=== PATIENT | male | born 1965 | race Caucasian/White ===

== ENCOUNTER 2017-05-23 18:51 | Emergency (ER) | payer BC, SELFPAY ==
[2017-05-23 19:45] VITALS: BP 137/91; PULSE 124; RESP 20; TEMP 37; O2SAT 96; BMI 30.7
[2017-05-23 19:56] LABS: UTC Influenza A Antigen Negative (Negative); UTC Influenza B Antigen Negative (Negative)
--- NOTE | 2017-05-23 21:02 | HMH.EDUTC ---
[facility] [place] Disposition Clinical Impression: Vomiting Qualifiers: Vomiting type: unspecified Vomiting Intractability: non-intractable Nausea presence: with nausea Qualified Code(s): R11.2 - Nausea with vomiting, unspecified Fever Qualifiers: Fever type: unspecified Qualified Code(s): R50.9 - Fever, unspecified Abdominal pain Qualifiers: Abdominal location: right upper quadrant Qualified Code(s): R10.11 - Right upper quadrant pain Disposition: Left Against Medical Advice Condition on Discharge: Fair (vomiting had improved) Additional Instructions: Return to ER tonight for new or worsening symptoms but otherwise, since you are leaving, you need to call primary care in morning, report symptoms, report seen here and refused transfer to ER or further workup and request follow up appointment. states positive understanding and pt just reports he hears me. Referrals: Asha Hernandez APRN [Primary Care Provider] - ([facility]) Time of Disposition: 21:02 Medical Decision Making Vital Signs: 05/23/17 19:45 Temperature 98.6 F Temperature Source Temporal Artery Scan Pulse Rate [Brachial] 124 H Respiratory Rate 20 Blood Pressure [Right Arm] 137/91 Blood Pressure Mean [Right Arm] 106 Blood Pressure Source [Right Arm] Automatic Cuff Blood Pressure Position [Right Arm] Sitting 02 Sat by Pulse Oximetry 96 Oxygen Delivery Method Room Air - Lab Data Lab results reviewed: Yes: I reviewed the patient's lab results. Lab Results 05/23/17 19:46: Influenza Type A Ag Negative, Influenza Type B Ag Negative Orders (Tests/Meds): ED MEDICATIONS Discontinued Medications Generic Name Dose Route Start Last Admin Trade Name Sy PRN Reason Stop Dose Admin Promethazine HCl 25 mg 05/23/17 20:49 05/23/17 20:53 Phenergan 25mg/Ml 1ml Vial IM 05/23/17 20:50 25 mg ONCE ONE Administration Sodium Chloride 25 ml 05/23/17 20:49 Sod Chloride 0.9% 25ml Bag IV 05/23/17 20:50 ONCE ONE - Tahir Inquiry Pt receiving controlled substance: No - Reevaluation(s) Time: 20:50 Reevaluation #1: 10 minute conversation with pt and regarding concerning symptoms, possible differentials and necessary workup to rule out life threatening complications. Pt refusing all of this. Report improved with phenergan, somewhat per , and ready to go home. tries to talk patient out of leaving but he is ready to go. Discussed risk related to each possible differential and says I hear ya and still leaves. He does agree to return for new or worsening symptoms and shakes head yes when encouraged to call primary care in the morning. [facility] HPI - General Stated complaint: vomiting Time Seen by Provider: 05/23/17 20:40 Mode of Arrival: Ambulatory Source of Information: Patient Limitations: No Limitations Description of Symptoms (Recalled from Triage Doc. by RN): PT STATES HE HAS BODY ACHES AND VOMITING THAT STARTED THIS MORNING. TOOK TYLENOL AND PHENERGAN BEFORE COMING TO THE [facility]. HEENT Symptoms (Recalled from RN notes): Yes Resp Symptoms (Recalled from RN notes): Yes Skin Symptoms (Recalled from RN notes): No MS Symptoms (Recalled from RN notes): No Functional Status (Recalled from RN notes): NA - History of Present Illness Provider Complaint: c/o vomiting starting this morning. Woke up fine, went to work, started around 0830. Reports he has vomited approx 15-20 times today despite ibuprofen and zofran. Fever 100-101 throughout the day. Has felt like he might have diarrhea but hasn't. Generalized abdominal pain like knots intermittently. Worse when needing to vomit. Sharp epigastric pain at times. Intermittent x month but worse now. Dx hiatel hernia and reports PCP, Dr. Stinson, considering scheduling EGD. Two grandchildren w/ flu. - Related Data Home Medications Medication Instructions Recorded Confirmed Omeprazole [Omeprazole 20mg 20 mg PO DAILY 05/23/17 05/23/17 Capsule] Allergies Aller
--- NOTE | 2017-05-23 21:05 | ED_ITS ---
[facility] [place] Disposition Clinical Impression: Vomiting Qualifiers: Vomiting type: unspecified Vomiting Intractability: non-intractable Nausea presence: with nausea Qualified Code(s): R11.2 - Nausea with vomiting, unspecified Fever Qualifiers: Fever type: unspecified Qualified Code(s): R50.9 - Fever, unspecified Abdominal pain Qualifiers: Abdominal location: right upper quadrant Qualified Code(s): R10.11 - Right upper quadrant pain Disposition: Left Against Medical Advice Condition on Discharge: Fair (vomiting had improved) Additional Instructions: Return to ER tonight for new or worsening symptoms but otherwise, since you are leaving, you need to call primary care in morning, report symptoms, report seen here and refused transfer to ER or further workup and request follow up appointment. states positive understanding and pt just reports he hears me. Referrals: Asha Hernandez APRN [Primary Care Provider] - ([facility]) Time of Disposition: 21:02 Medical Decision Making Vital Signs: 05/23/17 19:45 Temperature 98.6 F Temperature Source Temporal Artery Scan Pulse Rate [Brachial] 124 H Respiratory Rate 20 Blood Pressure [Right Arm] 137/91 Blood Pressure Mean [Right Arm] 106 Blood Pressure Source [Right Arm] Automatic Cuff Blood Pressure Position [Right Arm] Sitting 02 Sat by Pulse Oximetry 96 Oxygen Delivery Method Room Air - Lab Data Lab results reviewed: Yes: I reviewed the patient's lab results. Lab Results 05/23/17 19:46: Influenza Type A Ag Negative, Influenza Type B Ag Negative Orders (Tests/Meds): ED MEDICATIONS Discontinued Medications Generic Name Dose Route Start Last Admin Trade Name Sy PRN Reason Stop Dose Admin Promethazine HCl 25 mg 05/23/17 20:49 05/23/17 20:53 Phenergan 25mg/Ml 1ml Vial IM 05/23/17 20:50 25 mg ONCE ONE Administration Sodium Chloride 25 ml 05/23/17 20:49 Sod Chloride 0.9% 25ml Bag IV 05/23/17 20:50 ONCE ONE - Tahir Inquiry Pt receiving controlled substance: No - Reevaluation(s) Time: 20:50 Reevaluation #1: 10 minute conversation with pt and regarding concerning symptoms, possible differentials and necessary workup to rule out life threatening complications. Pt refusing all of this. Report improved with phenergan, somewhat per , and ready to go home. tries to talk patient out of leaving but he is ready to go. Discussed risk related to each possible differential and says I hear ya and still leaves. He does agree to return for new or worsening symptoms and shakes head yes when encouraged to call primary care in the morning. [facility] [place] [place] HPI - General Stated complaint: vomiting Time Seen by Provider: 05/23/17 20:40 Mode of Arrival: Ambulatory Source of Information: Patient Limitations: No Limitations Description of Symptoms (Recalled from Triage Doc. by RN): PT STATES HE HAS BODY ACHES AND VOMITING THAT STARTED THIS MORNING. TOOK TYLENOL AND PHENERGAN BEFORE COMING TO THE [facility]. HEENT Symptoms (Recalled from RN notes): Yes Resp Symptoms (Recalled from RN notes): Yes Skin Symptoms (Recalled from RN notes): No MS Symptoms (Recalled from RN notes): No Functional Status (Recalled from RN notes): NA - History of Present Illness Provider Complaint: c/o vomiting starting this morning. Woke up fine, went to work, started around 0830.
== END 2017-05-23 21:03 | disposition left against medical advice (07) ==
PROVIDERS: Emergency Provider Nurse Practitioner Family; Family Provider Nurse Practitioner; PCP Nurse Practitioner Family
DX: R11.2 Nausea with vomiting, unspecified (principal); R50.9 Fever, unspecified; R10.11 Right upper quadrant pain; Z79.899 Other long term (current) drug therapy; K21.9 Gastro-esophageal reflux disease without esophagitis; F17.210 Nicotine dependence, cigarettes, uncomplicated
CPT/HCPCS: 87804; 96372; 99202

== ENCOUNTER → 2017-06-01 07:57 | Outpatient (CLI) | payer BC, SELFPAY ==
--- NOTE | 2017-06-01 08:03 | US_ITS ---
HISTORY: Right upper quadrant pain with vomiting ITS.REASON: RUQ PAIN ORDERING PHYSICIAN: Hernando Stinson MD PATIENT AGE: 51 years COMPARISON: None FINDINGS: PANCREAS: Unremarkable LIVER: No focal liver lesions demonstrated. Homogeneous echogenicity. No intrahepatic biliary ductal dilatation evident RIGHT KIDNEY: Unremarkable. Normal size and echogenicity. No hydronephrosis GALLBLADDER: No gallstones, gallbladder wall thickening, pericholecystic fluid, or biliary dilatation. IMPRESSION: Negative gallbladder/right upper quadrant ultrasound
== END ==
PROVIDERS: Family Provider Nurse Practitioner; PCP Internal Medicine Adolescent Medicine; Visit Provider Internal Medicine Adolescent Medicine
DX: R10.11 Right upper quadrant pain (principal)
CPT/HCPCS: 76705

== ENCOUNTER → 2017-06-14 10:18 | Outpatient (CLI) | payer BC, SELFPAY ==
--- NOTE | 2017-06-14 10:21 | NM_ITS ---
NM hepatobiliary wo pharm HISTORY: ITS.REASON: RUQ PAIN ORDERING PHYSICIAN: Hernando Stinson MD PATIENT AGE: 51 years COMPARISON: None DOSE: 8.57 mCi Tc Choletec. Fatty meal with ensure. No pain reported with fatty meal. FINDINGS: Homogeneous activity is present within the hepatic parenchyma. Activity is present in the gallbladder by 15 minutes. Activity is present in the small bowel by during the fatty meal ingestion. The gallbladder ejection fraction is calculated to be 12% The patient did not report pain or other symptoms the fatty meal . IMPRESSION: 1. No evidence of common or cystic duct obstruction. 2. Low gallbladder ejection fraction of 12%
== END ==
PROVIDERS: Family Provider Nurse Practitioner; PCP Internal Medicine Adolescent Medicine; Visit Provider Internal Medicine Adolescent Medicine
DX: R10.11 Right upper quadrant pain (principal)
CPT/HCPCS: 78226; A9537

== ENCOUNTER 2017-07-08 09:25 | Day surgery (SDC) | payer BC, SELFPAY ==
[2017-07-05 10:33] VITALS: BMI 29.5
[2017-07-08] VITALS (7 sets, daily range): BP systolic 107–144; BP diastolic 54–95; PULSE 67–81; RESP 18–20; TEMP 36.6; O2SAT 92–98
--- NOTE | 2017-07-08 10:25 | HMH.PROC ---
[facility] Procedure Note Procedure Note:: Upper Endoscopy Procedure Report: Esophagogastroduodenoscopy with cold biopsies Endoscopost: Aashish Rosado II, MD Referring Physician: Hernando Stinson M.D. Date of Procedure: July 08, 2017 Equipment: Olympus GIF 180 standard upper endoscope Sedation: MAC sedation Indications: Mr. Lui is a 51-year-old gentleman with epigastric abdominal pain, heartburn and reflux over the last 6 months. He reports bloating, early satiety, indigestion and belching. He has had some minor dysphagia. This is his first endoscopy. Procedure: Prior to the procedure, a history and physical exam was performed, and patient's medications and allergies were reviewed. The risks, benefits and alternatives of the sedation and procedure were discussed with the patient. All questions were answered and informed consent was obtained. The patient was brought to the procedure room. Patient identification and proposed procedure were verified by the physician and the nurse. The patient was placed in a left lateral decubitus position and the scope was passed under direct vision. Throughout the procedure, the patient's blood pressure, pulse, and oxygen saturations were monitored continuously. The upper GI endoscopy was accomplished without difficulty. The patient tolerated the procedure well. Findings: The scope was passed directly into the upper esophagus and advanced to the third portion of the duodenum. The post bulbar duodenum and duodenal bulb were normal with normal mucosa and conniventes. The scope was withdrawn through a normal duodenal bulb and pylorus into the stomach. There was evidence of bile reflux with mild linear reactive gastritis of the antrum and body. The remainder of the antrum, body and fundus of the stomach were grossly normal. Upon retroflexion there was a moderate sized hiatal hernia. 2 biopsies were taken in the antrum and along the lesser curvature for histology to rule out gastritis and/or H pylori. The diaphragmatic hiatus was at 38 cm. The top of the gastric folds was at 33 cm (5 cm hiatal hernia). The squamocolumnar junction was at 24-25 centimeter from the incisors. Narrowband imaging was utilized to evaluate this long segment Nathan's esophagus and there was an area distally at or near 33 cm that was biopsied directly 5-6 times to rule out dysplasia. There were circumferential biopsies taken at 30 and 27 cm. NBI did not show any further areas of possible dysplasia. There was no evidence of reflux esophagitis or stricturing. The scope was then withdrawn into the esophagus. The remainder of the esophageal mucosa was normal. Impression: 1. Long segment Nathan's esophagus (Bethany classification [id number])directed biopsies taken with use of NBI (narrowband imaging) 2. 5 cm hiatal hernia 3. Linear reactive gastritis/antritis with bile reflux Plan: I will follow up the biopsies. If there is any evidence of dysplasia, we will discuss treatment options. I would recommend surveillance endoscopy again in 2 years. I will recommend long-term omeprazole/PPI therapy for complicated GERD. 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 We will discuss additional treatment options. I will proceed with screening colonoscopy.
--- NOTE | 2017-07-08 10:55 | HMH.PROC ---
[facility] Procedure Note Procedure Note:: Colonoscopy Procedure Report: Colonoscopy with cold snare polypectomy, snare cautery and Endo Clip placement Endoscopist: Aashish Rosado II, MD Referring physician: Hernando Stinson M.D. Date of Procedure: July 08, 2017 Equipment: Olympus 180 variable stiffness pediatric colonoscope Sedation: MAC sedation Indication: Mr. Lui is a 51-year-old gentleman with reflux and dyspepsia. His EGD showed evidence of moderate sized hiatal hernia and Nathan's esophagus. He also had reactive gastritis. He is also here for initial screening colonoscopy. He reports some looser bowel movements but no change in bowel function. He reports no rectal bleeding, weight loss or family history of colon cancer. Procedure: Prior to the procedure, a history and physical exam was performed, and patient's medications and allergies were reviewed. The risks, benefits and alternatives of the sedation and procedure were discussed with the patient. All questions were answered and informed consent was obtained. The patient was brought to the procedure room. Patient identification and proposed procedure were verified by the physician and the nurse. The patient was placed in a left lateral decubitus position and the scope was passed under direct vision. Throughout the procedure, the patient's blood pressure, pulse, and oxygen saturations were monitored continuously. The colonoscopy was accomplished without difficulty. The patient tolerated the procedure well. Findings: On digital rectal examination there was normal rectal tone. There were no external hemorrhoids. The prostate was 2+, smooth, soft, symmetric without nodules. The colonoscope was introduced through the anal canal to the rectum and advanced to the cecum. The ileocecal valve and appendiceal orifice were identified. The scope was advanced a short distance into the ileum which appeared grossly normal. The scope was then withdrawn into the colon. There were 7 colon polyps identified in the ascending ?5 and descending ?2. These ranged in size from 5-10 mm and were all removed via cold snare polypectomy. There was 8th polyp in the sigmoid colon that was pedunculated and larger and was approximately 15 mm and removed via snare cautery. An Endo Clip was placed at the polypectomy site to prevent bleeding and provide hemostasis. There were scattered diverticuli throughout the descending and sigmoid colon (LEFT colon). The rectum itself was normal. Upon retroflexion within the rectum there were grade 1-2 internal hemorrhoids. Impression: 1. Larger pedunculated 15 mm sigmoid polyp 2. 7 additional colonic polyps (adenomatous polyps ?7) 3. Left-sided diverticulosis 4. Grade 1-2 internal hemorrhoids Plan: I will follow-up the polyp histology and recommend repeat screening/surveillance colonoscopy again in 1-3 years based upon the pathology findings. I would encourage fiber bulk supplementation on a long-term daily maintenance basis.
--- NOTE | 2017-07-08 10:59 | P.PCN_ITS ---
[facility] Procedure Note Procedure Note:: Colonoscopy Procedure Report: Colonoscopy with cold snare polypectomy, snare cautery and Endo Clip placement Endoscopist: Aashish Rosado II, MD Referring physician: Hernando Stinson M.D. Date of Procedure: July 08, 2017 Equipment: Olympus 180 variable stiffness pediatric colonoscope Sedation: MAC sedation Indication: Mr. Lui is a 51-year-old gentleman with reflux and dyspepsia. His EGD showed evidence of moderate sized hiatal hernia and Nathan's esophagus. He also had reactive gastritis. He is also here for initial screening colonoscopy. He reports some looser bowel movements but no change in bowel function. He reports no rectal bleeding, weight loss or family history of colon cancer. Procedure: Prior to the procedure, a history and physical exam was performed, and patient' s medications and allergies were reviewed. The risks, benefits and alternatives of the sedation and procedure were discussed with the patient. All questions were answered and informed consent was obtained. The patient was brought to the procedure room. Patient identification and proposed procedure were verified by the physician and the nurse. The patient was placed in a left lateral decubitus position and the scope was passed under direct vision. Throughout the procedure, the patient's blood pressure, pulse, and oxygen saturations were monitored continuously. The colonoscopy was accomplished without difficulty. The patient tolerated the procedure well. Findings: On digital rectal examination there was normal rectal tone. There were no external hemorrhoids. The prostate was 2+, smooth, soft, symmetric without nodules. The colonoscope was introduced through the anal canal to the rectum and advanced to the cecum. The ileocecal valve and appendiceal orifice were identified. The scope was advanced a short distance into the ileum which appeared grossly normal. The scope was then withdrawn into the colon. There were 7 colon polyps identified in the ascending ?5 and descending ?2. These ranged in size from 5-10 mm and were all removed via cold snare polypectomy. There was 8th polyp in the sigmoid colon that was pedunculated and larger and was approximately 15 mm and removed via snare cautery. An Endo Clip was placed at the polypectomy site to prevent bleeding and provide hemostasis. There were scattered diverticuli throughout the descending and sigmoid colon (LEFT colon). The rectum itself was normal. Upon retroflexion within the rectum there were grade 1-2 internal hemorrhoids. Impression: 1. Larger pedunculated 15 mm sigmoid polyp 2. 7 additional colonic polyps (adenomatous polyps ?7) 3. Left-sided diverticulosis 4. Grade 1-2 internal hemorrhoids Plan: I will follow-up the polyp histology and recommend repeat screening/ surveillance colonoscopy again in 1-3 years based upon the pathology findings. I would encourage fiber bulk supplementation on a long-term daily maintenance basis.
--- NOTE | 2017-07-08 14:42 | P.PN_ITS ---
[facility] Anesthesia Checklist - Patient Identification Patient Identification: Arm Band - Structural Data Admitted From: Home Planned Operative Procedure/s: egd/colonoscopy Consent for Planned Operative Procedure(s) Verified: Yes Verified Documents: Surgical Consent, History and Physical - NPO Status Verified Time NPO: 00:00 - Additional verifications Anesthesia Reactions: No - Airway Assessment C-Spine Mobility Assessed: Yes (mp2) TMJ Mobility Assessed: Yes Dentition: Good Dentition - Neurological Assessment Level of Consciousness: Awake, Alert - Anesthesia Plan Anesthesia Risk discussed: Yes Anesthesia Plan: Verified ASA Class: II Anesthesia Type: MAC [facility] Anesthesia HX I have reviewed the patient's past medical history: Yes Medical History: Reports:: Gastroesophageal Reflux Disease(GERD), Hyperlipidemia Denies:: Diabetes Mellitus Type 1, Diabetes Mellitus Type 2, Hypertension, Internal Pacemaker, Lung Disease, Seizures Laterality Cases: Bilateral: Tonsillectomy Other Surgeries: No: Pacemaker *Family Hx:: Cancer, Hypertension, Coronary Artery Disease, Diabetes
== END 2017-07-08 12:00 | disposition home or self-care (01) ==
LOC: OUTP 09:27
PROVIDERS: Family Provider Nurse Practitioner; PCP Internal Medicine Adolescent Medicine; Visit Provider Internal Medicine Gastroenterology
PROC: 0DJ08ZZ Inspection of Upper Intestinal Tract, Via Natural or Artificial Opening Endoscopic (ICD-10-PCS; CPT 43235; principal; 2017-07-08 10:30)
DX: Z12.11 Encounter for screening for malignant neoplasm of colon (principal); K31.9 Disease of stomach and duodenum, unspecified; K22.8 Other specified diseases of esophagus; D12.2 Benign neoplasm of ascending colon; D12.4 Benign neoplasm of descending colon; D12.5 Benign neoplasm of sigmoid colon; K57.30 Diverticulosis of large intestine without perforation or abscess without bleeding; K64.0 First degree hemorrhoids; K64.1 Second degree hemorrhoids; K22.710 Barrett's esophagus with low grade dysplasia; K44.9 Diaphragmatic hernia without obstruction or gangrene
CPT/HCPCS: 45380; 43239

== ENCOUNTER → 2018-11-30 10:32 | Outpatient (CLI) | payer BC, SELFPAY ==
[2018-11-30 12:21] LABS: Prostate Specific Ag Screen 0.5 ng/mL (0.0-4.0)
[2018-12-03 18:36] LABS: Testosterone, Total, LC/MS 357.5 ng/dL (264.0-916.0); Testosterone,Free 7.2 pg/mL (7.2-24.0)
== END ==
PROVIDERS: Visit Provider Urology
DX: R68.82 Decreased libido (principal); Z12.5 Encounter for screening for malignant neoplasm of prostate
CPT/HCPCS: 36415; 84402; 84403; G0103

== ENCOUNTER → 2019-04-10 09:30 | Outpatient (CLI) | payer BC, SELFPAY ==
[2019-04-10 09:53] LABS: Basophils % 0.5 % (0.1-2.0); Eosinophils # 0.2 K/mm3 (0.0-0.4); Eosinophils % 2.5 % (0.1-12.0); Hematocrit 49.3 % (42.0-52.0); Hemoglobin 15.7 g/dL (14.1-18.0); Lymphocytes # 2.8 K/mm3 (0.7-4.5); Lymphocytes % 39.5 % (10-50); Mean Corpuscular HGB Conc 31.9 g/dL (31.8-35.4); Mean Corpuscular Hemoglobin 29.3 pg (27.0-31.2); Mean Corpuscular Volume 91.9 fl (80-94); Mean Platelet Volume 7.7 fl (7.4-10.4); Monocytes # 0.6 K/mm3 (0.1-1.0); Monocytes % 8.4 % (1.7-9.3); Neutrophils # 3.5 K/mm3 (1.8-7.8); Neutrophils % 49.2 % (37.0-80.0); Platelet Count 259 K/mm3 (142-424); Red Blood Count 5.37 M/mm3 (4.60-6.20); White Blood Count 7.1 K/mm3 (4.8-10.8)
[2019-04-10 10:28] LABS: Hemoglobin A1C 6.1 % (0.0-7.0)
[2019-04-10 11:01] LABS: Alanine Aminotransferase 27 U/L (12-78); Albumin Level 3.8 gm/dL (3.4-5.0); Albumin/Globulin Ratio 1.2 (1.1-1.8); Alkaline Phosphatase 84 U/L (46-116); Anion Gap 15.3 mEq/L (5-15); Aspartate Amino Transferase 9 U/L (15-37); Bilirubin,Total 0.4 mg/dL (0.2-1.0); Blood Urea Nitrogen 10 mg/dL (7-18); Calcium 9.2 mg/dL (8.5-10.1); Carbon Dioxide 26 mmol/L (21.0-32.0); Chloride 104 mmol/L (98-107); Chol/HDL Ratio 6.9 (1-3.5); Cholesterol 193 mg/dL (140-200); Creatinine,Serum 0.79 mg/dL (0.70-1.30); Estimated Glomerular Filt Rate 102 ml/min (>60); GFR (African American) 124 ML/MIN (>60); Globulin 3.2 gm/dl (1.3-3.2); Glucose 97 mg/dL (74-106); HDL Cholesterol 28 mg/dL (27-67); LDL Cholesterol 126 mg/dL (0-130); Potassium 4.3 mmoL/L (3.5-5.1); Sodium 141 mmol/L (136-145); Thyroid Stimulating Hormone 1.87 uIU/ml (0.358-3.740); Triglycerides 194 mg/dL (30-200); VLDL Cholesterol 39 mg/dL (0-40)
[2019-04-11 15:31] LABS: Vitamin B12 420 pg/mL (232-1245); Vitamin D 25 Hydroxy 13.2 ng/mL (30.0-100.0)
== END ==
PROVIDERS: Visit Provider Nurse Practitioner Family
DX: Z00.00 Encounter for general adult medical examination without abnormal findings (principal); R20.2 Paresthesia of skin; E55.9 Vitamin D deficiency, unspecified
CPT/HCPCS: 36415; 80053; 80061; 82607; 82652; 83036; 84443; 85025

== ENCOUNTER → 2019-09-08 08:21 | Outpatient (CLI) | payer BC, SELFPAY ==
[2019-09-08 09:17] LABS: Basophils # 0.2 K/mm3 (0-0.2); Basophils % 2.1 % (0.1-2.0); Eosinophils # 0.2 K/mm3 (0.0-0.4); Eosinophils % 2.7 % (0.1-12.0); Hematocrit 49.9 % (42.0-52.0); Hemoglobin 16.5 g/dL (14.1-18.0); Lymphocytes # 2.9 K/mm3 (0.7-4.5); Lymphocytes % 34.6 % (10-50); Mean Corpuscular Hemoglobin 29.5 pg (27.0-31.2); Mean Corpuscular Volume 89.3 fl (80-94); Mean Platelet Volume 8.3 fl (7.4-10.4); Monocytes # 0.7 K/mm3 (0.1-1.0); Monocytes % 8.6 % (1.7-9.3); Neutrophils # 4.4 K/mm3 (1.8-7.8); Platelet Count 252 K/mm3 (142-424); Red Blood Count 5.58 M/mm3 (4.60-6.20); Red Cell Distribution Width 13.5 % (11.5-17.5); White Blood Count 8.4 K/mm3 (4.8-10.8)
[2019-09-08 10:05] LABS: Chloride 100 mmol/L (98-107); Potassium 5.5 mmoL/L (3.5-5.1); Sodium 142 mmol/L (136-145)
[2019-09-08 10:08] LABS: Alanine Aminotransferase 34 U/L (12-78); Albumin Level 4.9 g/dl (3.5-5.0); Albumin/Globulin Ratio 1.9 (1.1-1.8); Alkaline Phosphatase 75 U/L (38-126); Anion Gap 16.5 mEq/L (5-15); Aspartate Amino Transferase 27 U/L (17-59); Bilirubin,Total 0.5 mg/dl (0.2-1.3); Blood Urea Nitrogen 9 mg/dl (9-20); Calcium 10.5 mg/dl (8.4-10.2); Carbon Dioxide 31 mmol/L (22.0-30.0); Cholesterol 194 mg/dl (140-200); Estimated Glomerular Filt Rate 101 ml/min (>60); GFR (African American) 122 ML/MIN (>60); Globulin 2.6 g/dL (1.3-3.2); Glucose 112 mg/dl (74-100); Total Protein,Serum 7.5 g/dl (6.3-8.2); Triglycerides 156 mg/dl (30-150); VLDL Cholesterol 31 mg/dL (0-40)
[2019-09-08 10:09] LABS: Chol/HDL Ratio 7.5 (1-3.5); HDL Cholesterol 26 mg/dl (40-60)
[2019-09-08 10:10] LABS: Hemoglobin A1C 5.6 % (4.0-6.0)
[2019-09-08 10:20] LABS: Direct LDL Cholesterol 159.35 mg/dL (100-129)
[2019-09-09 09:32] LABS: Vitamin D 25 Hydroxy 26.2 ng/mL (30.0-100.0)
== END ==
PROVIDERS: Visit Provider Nurse Practitioner Family
DX: R03.0 Elevated blood-pressure reading, without diagnosis of hypertension (principal); H53.9 Unspecified visual disturbance; E55.9 Vitamin D deficiency, unspecified
CPT/HCPCS: 36415; 80053; 80061; 82652; 83036; 85025

== ENCOUNTER → 2020-01-11 09:41 | Outpatient (CLI) | payer BC, SELFPAY ==
[2020-01-11 11:57] LABS: Anion Gap 12.9 mEq/L (5-15); Blood Urea Nitrogen 9 mg/dl (9-20); Calcium 10.2 mg/dl (8.4-10.2); Carbon Dioxide 31 mmol/L (22.0-30.0); Chloride 101 mmol/L (98-107); Estimated Glomerular Filt Rate 88 ml/min (>60); GFR (African American) 106 ML/MIN (>60); Glucose 80 mg/dl (74-100); Potassium 4.9 mmoL/L (3.5-5.1); Sodium 140 mmol/L (136-145)
[2020-01-11 12:07] LABS: Intact Parathyroid Hormone 32.5 pg/mL (7.5-53.5)
[2020-01-11 12:10] LABS: Free T4 (Free Thyroxine) 1.12 ng/dl (0.78-2.19)
[2020-01-11 12:24] LABS: Prostate Specific Ag Screen 0.4 ng/ml (0.0-4.0)
[2020-01-11 12:25] LABS: Thyroid Stimulating Hormone 1.42 uIU/mL (0.465-4.68)
[2020-01-12 18:44] LABS: Calcium, Ionized 5.6 mg/dL (4.5-5.6)
== END ==
PROVIDERS: PCP Nurse Practitioner Family; Visit Provider Urology
DX: E83.52 Hypercalcemia (principal); E87.5 Hyperkalemia; Z12.5 Encounter for screening for malignant neoplasm of prostate
CPT/HCPCS: 36415; 80048; 82330; 83970; 84439; 84443; G0103

== ENCOUNTER 2021-12-17 14:58 | Emergency (ER) | payer BC, SELFPAY ==
[2021-12-17 15:24] VITALS: BP 137/102; PULSE 86; RESP 16; TEMP 36.8; O2SAT 95; BMI 39.9
--- NOTE | 2021-12-17 15:34 | HMH.EDUTC ---
[facility] [place] Disposition Clinical Impression: Pharyngitis Qualifiers: Pharyngitis/tonsillitis etiology: unspecified etiology Qualified Code(s): J02.9 - Acute pharyngitis, unspecified Disposition: Home, Self-Care Condition on Discharge: Good Instructions: DI for Pharyngitis/Tonsillopharyngitis -- Adult Additional Instructions: Drink plenty of fluids. Take tylenol or ibuprofen for pain or fever. Take the medications as directed. Follow up with your regular doctor. GO TO THE ER FOR ANY WORSENING SYMPTOMS Prescriptions: Amoxicillin/Potassium Clav [Amox-Clav 875-125 mg Tablet] 1 tab PO BID #20 tab Transmission Status: Received by [id number] Benzonatate [Benzonatate 100mg cap] 100 mg PO TIDP PRN #30 cap PRN Reason: Cough Transmission Status: Received by [id number] methylPREDNISolone [Medrol] 4 mg PO DIRECTED 6 Days #21 packet Transmission Status: Received by [id number] Referrals: Hernando Stinson MD [Primary Care Provider] - Time of Disposition: 15:54 Medical Decision Making - Medical Records Medical records reviewed: No: I reviewed the patient's medical records. - Tahir Inquiry Pt receiving controlled substance: No Vital Signs: 12/17/21 15:24 Temperature 98.2 F Temperature Source Oral Pulse Rate [Left] 86 Respiratory Rate 16 Blood Pressure [Right Arm] 137/102 H Blood Pressure Mean [Right Arm] 113 02 Sat by Pulse Oximetry 95 - Lab Data Lab results reviewed: Yes: I reviewed the patient's lab results. Lab Results 12/17/21 15:23: Strep Scn Rapid Clinic Negative Orders (Tests/Meds): ORDERS Category Date Time Status Strep Screen Confirmation Stat Micro 12/17/21 15:23 Received [facility] [place] HPI - General Stated complaint: Sore throat, headache Time Seen by Provider: 12/17/21 15:34 Mode of Arrival: Ambulatory Source of Information: Parent(s) Limitations: No Limitations Description of Symptoms (Recalled from Triage Doc. by RN): patient comes in with complaints of sore throat, headache, nasal congestion. symptoms began 2 days ago. HEENT Symptoms (Recalled from RN notes): Yes Resp Symptoms (Recalled from RN notes): Yes Skin Symptoms (Recalled from RN notes): No MS Symptoms (Recalled from RN notes): No Functional Status (Recalled from RN notes): n/a - History of Present Illness Provider Complaint: He states that for the past 3 days he has had sore throat, chills, nonproductive cough and he has felt bad. - Related Data Home Medications Medication Instructions Recorded Confirmed acetaminophen 325 mg capsule 325 mg PO Q6H PRN 11/30/18 01/10/20 omeprazole 20 mg capsule,delayed 40 mg PO DAILY cap 01/04/19 01/10/20 release Previous Rx's Medication Instructions Recorded Amoxicillin/Potassium Clav 1 tab PO BID #20 tab 12/17/21 [Amox-Clav 875-125 mg Tablet] Benzonatate [Benzonatate 100mg 100 mg PO TIDP PRN #30 cap 12/17/21 cap] methylPREDNISolone [Medrol] 4 mg PO DIRECTED 6 Days #21 12/17/21 packet Allergies Allergy/AdvReac Type Severity Reaction Status Date / Time No Known Allergies Allergy Verified 12/17/21 15:28 - Worker's Comp Is this a Worker's Comp case?: No [facility] History - Hepatitis A Screen Attestation statement:: This patient has been screened for Hepatitis A risk factors. I have reviewed the patient's past medical history: Yes Medical History: Reports:: Gastroesophageal Reflux Disease(GERD), Hyperlipidemia Denies:: Cancer, Diabetes Mellitus Type 1, Diabetes Mellitus Type 2, Hypertension, Internal Pacemaker, Lung Disease, MRSA, Seizures Other Medical History: Reports: Other. Denies: Blood Transfusion Reaction Comment: Nathan's Esophagus Laterality Cases: Bilateral: Tonsillectomy Other Surgeries: Yes: No Previous Surgery, Colonoscopy, Hernia Repair. No: Pacemaker Amputation: No Fractures: No - Social History Smoking Status: Current every day smoker Tobacco Type: cigarettes # Packs/Day
[2021-12-17 15:39] LABS: UTC Strep Screen (Rapid) Negative (Negative)
[2021-12-17 16:05] VITALS: BP 137/102; PULSE 86; RESP 16; TEMP 36.8
== END 2021-12-17 16:06 | disposition home or self-care (01) ==
PROVIDERS: Emergency Provider Nurse Practitioner Family; PCP Internal Medicine Adolescent Medicine
DX: J02.9 Acute pharyngitis, unspecified (principal)
CPT/HCPCS: 87880; 99212; G0463

== ENCOUNTER 2023-02-07 11:47 | Emergency (ER) | payer BC, SELFPAY ==
[2023-02-07 13:29] VITALS: BP 0/0; PULSE 0; RESP 0; TEMP -17.7; TEMP 0
== END 2023-02-07 13:30 | disposition left against medical advice (07) ==
LOC: UTC 11:52
PROVIDERS: Emergency Provider Nurse Practitioner; PCP Internal Medicine Adolescent Medicine
DX: Z53.21 Procedure and treatment not carried out due to patient leaving prior to being seen by health care provider (principal)